=== PATIENT | male | born 1985 | race Caucasian/White ===

== ENCOUNTER 2017-04-28 05:49 | Day surgery (SDC) | payer OTHER ==
[~2017-04-28] VITALS: Ht 175.3 cm; Wt 114.3 kg
[2017-04-28] MEDS ORDERED: ONDANSETRON PF 4 MG/2 ML VIAL. IV PRN (07:00)
[2017-04-28] MEDS ORDERED: HYDROmorphone 2 MG/ML VIAL IV PRN (07:00)
[2017-04-28] MEDS ORDERED: fentaNYL PF VIAL 100 MCG/2 ML VIAL IV PRN (07:00)
[2017-04-28] MEDS ORDERED: PROCHLORPERAZINE 10 MG/2 ML VIAL. IV PRN (07:00)
[2017-04-28] MEDS ORDERED: IV RINGERS,LACTATED 1000ML 1,000 ML IV SCH (07:00)
[2017-04-28] MEDS ORDERED: LIDOCAINE 1% 1 ML SYRINGE. ID PRN (07:00)
[2017-04-28] MEDS ORDERED: LIDOCAINE 2% PF Vial for OR 5 ML VIAL. ONE (07:22)
[2017-04-28] MEDS ORDERED: DEXAMETHASONE SOD PHOS 20 MG/5 ML VIAL. ONE (07:22)
[2017-04-28] MEDS ORDERED: PROPOFOL 20 ML IV ONE ×2 (07:22→08:18)
[2017-04-28] MEDS ORDERED: SUCCINYLCHOLINE 200 MG/10 ML VIAL. ONE (07:23)
[2017-04-28] MEDS ORDERED: ONDANSETRON PF 4 MG/2 ML VIAL. ONE (07:23)
[2017-04-28] MEDS ORDERED: ROCURONIUM 100 MG/10 ML VIAL. ONE (07:25)
[2017-04-28] MEDS ORDERED: fentaNYL PF VIAL 100 MCG/2 ML VIAL ONE ×4 (07:25→09:28)
[2017-04-28] MEDS ORDERED: MIDAZOLAM HCL/PF 2 MG/2 ML VIAL. ONE (07:26)
[2017-04-28] MEDS ORDERED: BUPIVAC MPF-EPI 0.5%-1:200000 30 ML VIAL. ONE (07:34)
[2017-04-28] MEDS ORDERED: GELATIN SPONGE SIZE 100. ONE (07:34)
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
[2017-04-28] MEDS ORDERED: NEOSTIGMINE 10 MG/10 ML VIAL. ONE (08:28)
[2017-04-28] MEDS ORDERED: GLYCOPYRROLATE 1 MG/5 ML VIAL. ONE (08:28)
[2017-04-28] MEDS ORDERED: NEOMY/BACITR/POLYMYXIN OINT PACKET. TP ONE (08:38)
--- NOTE | 2017-04-28 09:02 | PDOC ---
BRIEF OPERATIVE NOTE Date: Apr 28, 2017 Pre-Op Diagnosis fistula in ano, possible foreign body buttocks Post-Op Diagnosis fistula in ano, cyst buttocks Procedure Performed rigid proctoscopy placement seton debridement gluteal abscess Surgeon Estiven Anesthesia Type: General Blood Loss 10cc IV Fluid 900cc Specimens Obtained fistula Findings sebaceous cyst at 2:00, fistula tract at 5:00 with path deep to the sphincteric musculature Complications none OPerative Note Wk # [id number] MARY WEBB MD Apr 28, 2017 09:02
[2017-04-28] MEDS: fentaNYL PF VIAL 100 MCG/2 ML VIAL IV PRN ×4 (09:14→09:49)
--- NOTE | 2017-04-28 09:16 | DISCH ---
DISCHARGE INSTRUCTIONS Condition on Discharge Condition on Discharge: Stable Activity After Discharge Activity Instructions for Disc: Activity as tolerated, Avoid exertion Lifting Instructions after Dis: No heavy lifting Diet after Discharge Diet after Discharge: Regular Wound Incision Care Wound/Incision Care: Ice to area for comfort, Other, see below (tug on seton when able) Other wound/incision instructi: daily shower, dress wound with antibiotic ointment MARY WEBB MD Apr 28, 2017 09:16
[2017-04-28] MEDS ORDERED: MORPHINE SULFATE 2 MG/ML DISP.SYRIN. ONE (09:34)
[2017-04-28] MEDS: MORPHINE SULFATE 2 MG/ML DISP.SYRIN. IV PRN ×2 (09:36→09:57)
--- NOTE | 2017-04-28 09:45 | OP ---
DATE OF SURGERY: 04/28/2017 PREOPERATIVE DIAGNOSIS: [id number], possible foreign body buttocks. POSTOPERATIVE DIAGNOSIS: [id number]-gl-[id number] and cyst of the buttocks. PROCEDURE: 1. Rigid proctoscopy. 2. Debridement of gluteal abscess. 3. Placement of seton. SURGEON: Mary Webb MD ANESTHESIA: General endotracheal. ESTIMATED BLOOD LOSS: 10 mL. INTRAVENOUS FLUIDS: 900. INDICATIONS: The patient is a 31-year-old male inmate with history of previous lancing of the perirectal abscess. He is brought for excision of the fistula and has a history of being sharp and has concerns about a possible foreign body in his buttocks. OPERATIVE FINDINGS: The opening of 5 o'clock was unroofed and debrided and revealed a tract that was cannulated with a small probe into the anal canal. This strand deep to the sphincter musculature. The palpable area of concern at 2 o' clock off the anal orifice was the result of a sebaceous cyst and no appreciable foreign body was found. DESCRIPTION OF PROCEDURE: The patient brought to the operating suite, given a general endotracheal anesthetic and placed into the prone jackknife position. Buttocks ____. Digital rectal exam was carried out and the rigid scope placed in the anal canal under direct vision, advanced to approximately 15 cm from the anal verge. The scope was slowly removed after encountering some stool. No mucosal abnormalities were found. The area was prepped and draped in usual sterile fashion. The opening at 5 o' clock was gently probed and initially unable to identify the fistulous tract toward the anal canal. It was unroofed and debridement and this allowed identification of the connection to the fistula and it was gently probed and ____ into the anal canal deep to the sphincter musculature. As such, a double strand of 0-silk was threaded through the fistula and tied loosely for a seton. Gelfoam pack was placed in the anal canal and 1-inch plain Nu Gauze and antibiotic ointment used back the small opening where we had debrided, the area on the buttocks that was created from the chronic fistula. Good hemostasis was present. Correct sponge count obtained. Sterile dressing applied. The patient taken out of the prone position, awakened from his anesthetic and taken to the recovery room in satisfactory condition. MARY WEBB MD DR: Yue JOB#: [id number] / [id number]
[2017-04-28 10:15] VITALS: BP 168/77
[2017-04-28] MEDS ORDERED: ceFAZolin 2GM PREMIX 2 GM/50 ML BAG IV ONE (12:00)
== END 2017-04-28 10:32 | disposition home or self-care (01) ==
LOC: SURG 05:49
PROVIDERS: ATTEND Surgery
DX: K60.3 Anal fistula (principal); L02.31 Cutaneous abscess of buttock; E66.9 Obesity, unspecified; Z68.30 Body mass index [BMI] 30.0-30.9, adult; Z86.14 Personal history of Methicillin resistant Staphylococcus aureus infection
CPT/HCPCS: 10060; 46020; J0330; J0690; J1100; J2001; J2250; J2270; J2405; J2704; J2710; J3010; J3490

== ENCOUNTER 2017-09-08 07:51 | Day surgery (SDC) | payer OTHER ==
[~2017-09-08] VITALS: Ht 175.3 cm; Wt 110.7 kg
[~2017-09-08 07:51] MED LIST: BUPIVAC MPF-EPI 0.5%-1:200000 30 ML VIAL. ONE; GELATIN SPONGE SIZE 100. ONE; HYDROmorphone 2 MG/ML VIAL IV PRN; IV RINGERS,LACTATED 1000ML 1,000 ML IV SCH; LIDOCAINE 1% PF 2 ML VIAL. ID PRN; MORPHINE SULFATE 2 MG/ML DISP.SYRIN. IV PRN; ONDANSETRON PF 4 MG/2 ML VIAL. IV PRN; PROCHLORPERAZINE 10 MG/2 ML VIAL. IV PRN; ceFAZolin 2GM PREMIX 2 GM/50 ML BAG IV ONE; fentaNYL PF VIAL 100 MCG/2 ML VIAL IV PRN
[2017-09-08] MEDS ORDERED: SODIUM PHOSPHATES 19/7GM 133 ML ENEMA. ONE (07:54)
[2017-09-08] MEDS ORDERED: SULF1TAB24 PO (08:15)
[2017-09-08] MEDS ORDERED: fentaNYL PF VIAL 100 MCG/2 ML VIAL ONE ×2 (08:23→10:08)
[2017-09-08] MEDS ORDERED: LIDOCAINE 2% PF Vial for OR 5 ML VIAL. ONE (08:23)
[2017-09-08] MEDS ORDERED: DEXAMETHASONE SOD PHOS 20 MG/5 ML VIAL. ONE (08:23)
[2017-09-08] MEDS ORDERED: ONDANSETRON PF 4 MG/2 ML VIAL. ONE (08:23)
[2017-09-08] MEDS ORDERED: MIDAZOLAM HCL/PF 2 MG/2 ML VIAL. ONE (08:23)
[2017-09-08] MEDS ORDERED: PROPOFOL 20 ML IV ONE (08:23)
[2017-09-08] MEDS ORDERED: ROCURONIUM 50 MG/5 ML VIAL. ONE (08:23)
[2017-09-08] MEDS ORDERED: SUCCINYLCHOLINE 200 MG/10 ML VIAL. ONE (08:30)
[2017-09-08] MEDS ORDERED: DOCU-109 PO (08:34)
--- NOTE | 2017-09-08 09:31 | PDOC1 ---
History and Physical Date of Admission Date of Admission DATE: 09/08/17 TIME: 09:27 Identification/Chief Complaint Chief Complaint fistula in ano Problems: Source Source: Chart review, Patient History of Present Illness History of Present Illness Ezra is a 31 yo male inmate with a seton in place. It has migrated toward the skin and he comes now for excision of his fistula Past Medical History Cardiovascular: No pertinent hx Pulmonary: No pertinent hx GI: Other Past Surgical History Past Surgical History: Other Family History Family History: No Significant Social History Smoke: No ALCOHOL: none Drugs: None Current Medications Current Medications Current Medications Ondansetron HCl (Zofran) 4 mg PRN Q6HRS PRN IV NAUSEA/VOMITING; Start at 07:00; Stop 09/09/17 at 06:59 Fentanyl Citrate (Fentanyl 2ml Vial) 25 mcg PRN Q5MIN PRN IV MILD PAIN; Start 09/08/17 at 07:00; Stop 09/09/17 at 06:59 Fentanyl Citrate (Fentanyl 2ml Vial) 50 mcg PRN Q5MIN PRN IV MODERATE PAIN; Start 09/08/17 at 07:00; Stop 09/09/17 at 06:59 Morphine Sulfate 1 mg PRN Q10MIN PRN IV SEVERE PAIN; Start 09/08/17 at 07:00; Stop 09/09/17 at 06:59 Ringer's Solution 1,000 ml @ 30 mls/hr Q24H IV Last administered on t 08:32; Start 09/08/17 at 07:00; Stop 09/08/17 at 18:59 Lidocaine HCl (Xylocaine-Mpf 1% Vial) 2 ml PRN 1X PRN ID PRIOR TO IV START; Start 09/08/17 at 07:00; Stop 09/09/17 at 06:59 Hydromorphone HCl (Dilaudid) 0.5 mg PRN Q10MIN PRN IV SEV PAIN, Second choice; Start 09/08/17 at 07:00; Stop 09/09/17 at 06:59 Prochlorperazine Edisylate (Compazine) 5 mg PACU PRN PRN IV NAUSEA, MRX1; Start 09/08/17 at 07:00; Stop 09/09/17 at 06:59 Cefazolin Sodium/ Dextrose 50 ml @ 100 mls/hr 1X PREOP PRN IV PRIOR TO PROCEDURE; Start 09/08/17 at 06:00; Stop 09/08/17 at 18:00 Gelatin (Gelfoam Size 100) 1 each STK-MED ONCE .ROUTE ; Start 09/08/17 at 06: 43; Stop 09/08/17 at 06:44; Status DC Bupivacaine HCl/ Epinephrine Bitart (Sensorcain-Mpf Epi 0.5%-1:037869) 30 ml STK -MED ONCE .ROUTE ; Start 09/08/17 at 06:43; Stop 09/08/17 at 06:44; Status DC Sodium Monofluorophosphate (Fleet Adult) 133 ml STK-MED ONCE .ROUTE ; Start at 07:54; Stop 09/08/17 at 07:55; Status DC Propofol 20 ml @ As Directed STK-MED ONCE IV ; Start 09/08/17 at 08:23; Stop 09/08/17 at 08:24; Status DC Dexamethasone Sodium Phosphate (Decadron) 20 mg STK-MED ONCE .ROUTE ; Start at 08:23; Stop 09/08/17 at 08:24; Status DC Lidocaine HCl (Lidocaine Pf 2% Vial) 5 ml STK-MED ONCE .ROUTE ; Start 09/08/17 at 08:23; Stop 09/08/17 at 08:24; Status DC Fentanyl Citrate (Fentanyl 2ml Vial) 100 mcg STK-MED ONCE .ROUTE ; Start at 08:23; Stop 09/08/17 at 08:24; Status DC Ondansetron HCl (Zofran) 4 mg STK-MED ONCE .ROUTE ; Start 09/08/17 at 08:23; Stop 09/08/17 at 08:24; Status DC Rocuronium [place] (Zemuron) 50 mg STK-MED ONCE .ROUTE ; Start 09/08/17 at 08: 23; Stop 09/08/17 at 08:24; Status DC Midazolam HCl (Versed) 2 mg STK-MED ONCE .ROUTE ; Start 09/08/17 at 08:23; Stop 09/08/17 at 08:24; Status DC Succinylcholine Chloride (Anectine) 200 mg STK-MED ONCE .ROUTE ; Start at 08:30; Stop 09/08/17 at 08:31; Status DC Active Scripts Active Reported Colace (Docusate Sodium) 100 Mg Capsule 1 Cap PO DAILY Bactrim Ds Tablet (Sulfamethoxazole/Trimethoprim) 1 Each Tablet 1 Tab PO BID No Known Medications Prior To Admisstion (Info) Each 1 Each MC Allergies Allergies: Coded Allergies: No Known Drug Allergies (Unverified , 09/08/17) ROS Review of System negative with exception of present complaints Physical Exam General: Alert, Oriented X3, Cooperative, No acute distress HEENT: Atraumatic Lungs: Clear to auscultation Heart: RRR Abdomen: Soft, No tenderness Rectal Exam: other (seton in place) Vitals Vitals Vital Signs Date Time Temp Pulse Resp B/P (MAP) Pulse Ox O2 Delivery O2 Flow Rate FiO2 09/08/17 08:19 99.0 71 16 127/66 99 Room Air 99.0 VTE Prophylaxis Ordered VTE Prophylaxis Devices: Yes VTE Pharmacological Prophylaxi: No Assessment/Plan Assessment/Plan fistula in ano with seton in place excision explained R/B/A including but not limited to bleeding, infection, recurrence, fecal incontinence he will proceed. MARY WEBB MD Sep 08, 2017 09:31
[2017-09-08] MEDS ORDERED: SURGICEL HEMOSTAT 2X3 EACH. ONE (10:01)
[2017-09-08] MEDS ORDERED: SEVOFLURANE 61 TO 120 MINUTES. IH ONE (10:05)
[2017-09-08] MEDS ORDERED: NEOSTIGMINE METHYLSULFATE 5 MG/5 ML SYRINGE. ONE (10:08)
[2017-09-08] MEDS ORDERED: GLYCOPYRROLATE 1 MG/5 ML VIAL. ONE (10:08)
--- NOTE | 2017-09-08 10:35 | DISCH ---
DISCHARGE INSTRUCTIONS Condition on Discharge Condition on Discharge: Stable Activity After Discharge Activity Instructions for Disc: Activity as tolerated, Avoid exertion Lifting Instructions after Dis: No heavy lifting Diet after Discharge Diet after Discharge: Regular Wound Incision Care Wound/Incision Care: Ice to area for comfort Other wound/incision instructi: shon padilla Follow-Up Follow up with: Estiven 09/11 MARY WEBB MD Sep 08, 2017 10:35
--- NOTE | 2017-09-08 10:46 | PDOC ---
BRIEF OPERATIVE NOTE Date: Sep 08, 2017 Pre-Op Diagnosis fistula in ano Post-Op Diagnosis same Procedure Performed EUA, excision fistula Surgeon Estiven Anesthesia Type: General Blood Loss 10cc IV Fluid 400cc Specimens Obtained fistula Findings seton in place Complications none Operative Note Wk # [id number] MARY WEBB MD Sep 08, 2017 10:46
[2017-09-08] MEDS ORDERED: IBUPROFEN 200 MG TABLET. PO ONE (11:28)
[2017-09-08] MEDS ORDERED: IBUPROFEN 600 MG TABLET. PO ONE (11:30)
[2017-09-08 11:36] VITALS: BP 156/60
--- NOTE | 2017-09-08 12:36 | OP ---
DATE OF SURGERY: 09/08/2017 PREOPERATIVE DIAGNOSIS: [id number] with Seton in place. POSTOPERATIVE DIAGNOSIS: [id number] with seton in place. PROCEDURE: Excision of fistula. SURGEON: Mary Webb MD. ANESTHESIA: General endotracheal. ESTIMATED BLOOD LOSS: 10. IV FLUID: 400. INDICATIONS: The patient is a 31-year-old male inmate with a Seton in place, here for removal and excision of his fistula. DESCRIPTION OF PROCEDURE: The patient was brought to the operating suite, placed in the prone jackknife position, buttocks taped apart and the area prepped and draped in usual sterile fashion. The Seton was in place exiting at the 5 o'clock position perianally. The tract was identified by passing a small probe. The tract was excised using cautery dissection, preserving the sphincter musculature. Prior to incision, 0.5% Marcaine with epinephrine was infiltrated circumanally for postoperative analgesia. The wound was checked for hemostasis. A small piece of Surgicel was placed to augment hemostasis from the area of excision. Gelfoam pack placed in anal canal extruded from the anal orifice. The 4 x 4 s and mesh pants were used to dress. The patient was taken out of the prone position, awakened from his anesthetic and taken to the recovery room in satisfactory condition. MARY WEBB MD DR: MONTY/za JOB#: [id number] / [id number]
--- NOTE | 2017-09-10 10:35 | PATHOLOGY ---
PATHOLOGY REPORT * * * * * * * * FINAL DIAGNOSIS: Segments of anal squamous mucosa and skin and subcutaneous tissue, excision: - Fistula tract lined by granulation tissue showing acute and chronic inflammation. COMMENT: There is no evidence of malignancy. (JPM:mml; 09/10/2017) REPORT ELECTRONICALLY SIGNED BY: Jeremiah Bowen M.D. DATE/TIME: 09/10/2017 10:34 * * * * * * * * GROSS PATHOLOGY: Received in formalin labeled "Emery Hand, anal fistula" and consists of 2 firm, irregularly shaped, dark brown, whittington, and cauterized tissue fragments measuring 1.2 x 0.5 x 0.4 cm and 3.0 x 1.0 x 0.6 cm. The larger demonstrates probable skin on one surface. Sectioning the larger reveals dense whittington pink cut surfaces. The specimen is totally submitted as A1. (MARYELLEN; 09/09/2017) INITIAL CPT CODE(S): A; 10577 Professional services performed by [facility] [place] [address] Technical services performed by [facility] at [address] [place] [address], [address] [place] [address]. [place] [address] phone: fax: SPECIMEN(S) RECEIVED: A.Anal fistula CLINICAL HISTORY: Fistula in ano PATIENT: EMERY HAND /AGE: 311/26/1985 (Age: 31) PATIENT #: [id number] ALT CASE #: SPECIMEN COLLECTION DATE: 09/08/2017 SPECIMEN RECEIVED DATE: 09/08/2017 [facility] - [address] [place] [address] - PHONE: [phone] * * * END OF REPORT * * *
== END 2017-09-08 12:03 | disposition home or self-care (01) ==
LOC: SURG 07:51 → EEVIPCON 10:00 → SURG 12:03
PROVIDERS: ATTEND Surgery
DX: K60.3 Anal fistula (principal)
CPT/HCPCS: 46270; C1769; J0330; J1100; J2250; J2405; J2704; J2710; J3010; J3490; 88304; J0690; A4461; J2001